=== PATIENT | female | born 1955 | race Caucasian/White ===

== ENCOUNTER 2021-09-14 05:30 | Observation (INO) | payer MEDICARE ==
[2021-09-13 11:51] LABS: BASOPHILS % (AUTO) 0.7 % (0.0-5.0); EOSINOPHILS % (AUTO) 1.2 % (0.0-8.0); HEMATOCRIT 39.7 % (36-48); LYMPHOCYTES % (AUTO) 24.2 % (21.0-51.0); MEAN CORPUSCULAR HEMOGLOBIN 31.8 pg (27.0-33.0); MEAN CORPUSCULAR HGB CONC 33.5 g/dL (32.0-36.0); MONOCYTES % (AUTO) 6.9 % (3.0-13.0); NEUTROPHILS % (AUTO) 66.7 % (40.0-77.0); PLATELET COUNT (AUTO) 317 K/uL (130-400); RED BLOOD CELL COUNT(AUTO) 4.18 MIL/uL (4.00-5.50); RED CELL DISTRIBUTION WIDTH 12.1 % (11.0-15.5); WHITE BLOOD COUNT (AUTO) 7.2 K/uL (4.8-10.8)
[2021-09-13 12:27] LABS: APPEARANCE,URINE SL CLOUDY (CLEAR); BILIRUBIN,URINE NEGATIVE (NEGATIVE); COLOR,URINE YELLOW (YELLOW); GLUCOSE, URINE (UA) NEGATIVE (NEGATIVE); KETONES,URINE NEGATIVE (NEGATIVE); LEUKOCYTE ESTERASE ,URINE NEGATIVE (NEGATIVE); NITRATE,URINE NEGATIVE (NEGATIVE); OCCULT BLOOD,URINE NEGATIVE (NEGATIVE); PH,URINE 7.5 (5.0-8.0); PROTEIN,URINE NEGATIVE (NEGATIVE); UROBILINOGEN,URINE 0.2 mg/dL (0.2-1.0)
[2021-09-13 12:49] LABS: INR 0.93 (0.85-1.15); PROTHROMBIN TIME 9.9 SEC (9.6-11.6)
[~2021-09-14] VITALS: Ht 172.7 cm; Wt 73.9 kg
[2021-09-14] VITALS (25 sets, daily range): BP systolic 121–150; BP diastolic 69–86
[~2021-09-14 05:30] MED LIST: ESOM40CA PO; FENO67CA10 PO; HYDR12.54 PO; LACTATED RINGERS 1000ML 1,000 ML IV SCH; LEVO88CA4 PO; METOPROLOL PO; OLME5TAB PO; ROSU5TAB PO
[2021-09-14] MEDS ORDERED: CEFAZOLIN SODIUM 1 GM VIAL IVP SCH (06:00)
[2021-09-14] MEDS ORDERED: FAMOTIDINE 20MG VIAL IV ONE (09:45)
[2021-09-14] MEDS ORDERED: HYDROMORPHONE 1 MG INJ ONE (09:45)
[2021-09-14] MEDS ORDERED: LIDOCAINE PF 100MG/5ML (2%) SYRINGE 5ML ONE (09:46)
[2021-09-14] MEDS ORDERED: MIDAZOLAM HCL 1 MG/ML 2ML VIAL ONE (09:48)
[2021-09-14] MEDS ORDERED: GLYCOPYRROLATE 1 MG/5 ML SYRINGE ONE (09:48)
[2021-09-14] MEDS ORDERED: PROPOFOL 10 MG/ML 20ML VIAL IV ONE (09:48)
[2021-09-14] MEDS ORDERED: EPHEDRINE SULFATE 50 MG/ML AMPULE ONE (09:48)
[2021-09-14] MEDS ORDERED: FENTANYL CITRATE PF 50 MCG/1 ML 2ML VIAL ONE (09:49)
[2021-09-14] MEDS ORDERED: ROCURONIUM 10MG/1ML SYR 10 MG/ML ML ONE (09:49)
[2021-09-14] MEDS ORDERED: NEOSTIGMINE 5MG/5ML SYR IV ONE (09:49)
[2021-09-14] MEDS ORDERED: ONDANSETRON 4MG INJ ONE ×2 (09:51→14:17)
[2021-09-14] MEDS ORDERED: CEFAZOLIN SODIUM 2 GM VIAL IV ONE (10:28)
[2021-09-14] MEDS ORDERED: MEPERIDINE-PF 25 MG/ML SYG ONE (13:08)
[2021-09-14] MEDS ORDERED: ONDANSETRON 4MG INJ IVP PRN (14:00)
[2021-09-14] MEDS ORDERED: IBUPROFEN 600 MG TABLET PO PRN (14:00)
[2021-09-14] MEDS ORDERED: ACETAMINOPHEN WITH CODEINE 1 TAB TAB PO PRN (14:00)
[2021-09-14] MEDS ORDERED: BISACODYL 10 MG SUPP.RECT RC PRN (14:00)
[2021-09-14] MEDS ORDERED: PROMETHAZINE HCL 25 MG/ML 1ML AMPULE IM PRN (14:00)
[2021-09-14] MEDS: PROMETHAZINE HCL 25 MG/ML 1ML AMPULE IM PRN ×2 (14:59→19:56)
[2021-09-14] MEDS: MEPERIDINE-PF 75 MG/ML SYG IM PRN ×2 (15:13→19:56)
[2021-09-14] MEDS: DEXTROSE 5 %-0.45 % NACL 1,000 ML IV PRN (21:16)
[2021-09-15] MEDS: PROMETHAZINE HCL 25 MG/ML 1ML AMPULE IM PRN (02:15)
[2021-09-15] MEDS: MEPERIDINE-PF 75 MG/ML SYG IM PRN (02:16)
[2021-09-15 03:08] VITALS: BP 108/66
[2021-09-15 05:39] LABS: HEMATOCRIT 33.5 % (36-48); MEAN CORPUSCULAR HEMOGLOBIN 31.9 pg (27.0-33.0); MEAN CORPUSCULAR HGB CONC 32.8 g/dL (32.0-36.0); MEAN CORPUSCULAR VOLUME 97.1 fL (79-99); RED BLOOD CELL COUNT(AUTO) 3.45 MIL/uL (4.00-5.50); RED CELL DISTRIBUTION WIDTH 11.9 % (11.0-15.5); WHITE BLOOD COUNT (AUTO) 12.6 K/uL (4.8-10.8)
[2021-09-15] MEDS ORDERED: HYDROCODONE/ACETAMINOPHEN 5/325 MG TAB PO PRN (06:00)
[2021-09-15] MEDS: DEXTROSE 5 %-0.45 % NACL 1,000 ML IV PRN (06:08)
[2021-09-15] MEDS: ACETAMINOPHEN WITH CODEINE 1 TAB TAB PO PRN ×2 (06:17→20:11)
[2021-09-15 07:35] VITALS: BP 112/71
[2021-09-15] MEDS: DOCUSATE SODIUM 100 MG CAP PO PRN ×2 (09:06→21:12)
[2021-09-15] MEDS: SIMETHICONE 80 MG TAB.CHEW PO PRN ×2 (09:06→21:12)
[2021-09-15] MEDS: CEPHALEXIN 500 MG CAPSULE PO SCH ×3 (09:21→20:12)
[2021-09-15] MEDS: IBUPROFEN 800 MG TAB PO SCH ×2 (09:21→17:26)
[2021-09-15 12:00] VITALS: BP 110/70
[2021-09-15] MEDS ORDERED: IBUPROFEN 800 MG TAB PO SCH (14:00)
[2021-09-15 15:50] VITALS: BP 125/68
[2021-09-15 19:13] VITALS: BP 133/79
[2021-09-15 22:55] VITALS: BP 128/72
[2021-09-16] MEDS: IBUPROFEN 800 MG TAB PO SCH ×2 (00:45→08:40)
[2021-09-16] MEDS: CEPHALEXIN 500 MG CAPSULE PO SCH ×2 (02:29→08:41)
[2021-09-16 02:31] VITALS: BP 116/71
[2021-09-16 07:23] VITALS: BP 117/76
[2021-09-16] MEDS: SIMETHICONE 80 MG TAB.CHEW PO PRN (08:39)
[2021-09-16] MEDS: DOCUSATE SODIUM 100 MG CAP PO PRN (08:40)
[2021-09-16 11:09] VITALS: BP 134/77
== END 2021-09-16 13:20 | disposition home or self-care (01) ==
LOC: DAH 05:30 → DAHIP 05:31 → WSH 11:55
PROVIDERS: ADMIT Obstetrics & Gynecology; ATTEND Obstetrics & Gynecology
DX: N81.2 Incomplete uterovaginal prolapse (principal); Z20.822 Contact with and (suspected) exposure to COVID-19; N81.4 Uterovaginal prolapse, unspecified; K46.9 Unspecified abdominal hernia without obstruction or gangrene; N81.6 Rectocele; Z79.899 Other long term (current) drug therapy; Z98.890 Other specified postprocedural states
CPT/HCPCS: 36415 ×2; 57265; 57288; 58292; 81003; 85025; 85027; 85610; 85730; 86850; 86900; 86901; 87635; 96372 ×2; 96374; A4215; A4216; A4221; A4222; A4223 ×3; A4351; A4606 ×2; A4663; A6260; C1771; C9803; G0168; G0378 ×52; G0379; J0690 ×2; J1170; J2001; J2175 ×4; J2250; J2405 ×2; J2550 ×3; J2704; J2710; J3010; J3490 ×3; J7030; J7120